=== PATIENT | female | born 2000 | race Caucasian/White ===

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

== ENCOUNTER → 2020-03-15 | Outpatient (CLI) | payer SELFPAY | LOC: RAD 16:02 | DX: M79.671 Pain in right foot (principal) ==

== ENCOUNTER → 2020-03-16 | Outpatient (CLI) | payer SELFPAY | LOC: RAD 09:56 | DX: R60.9 Edema, unspecified (principal) ==